=== PATIENT | female | born 1975 | race African-American/Black ===

== ENCOUNTER 2022-04-12 11:53 | Emergency (ER) | payer SELFPAY ==
[~2022-04-12] VITALS: Ht 165.1 cm; Wt 66.0 kg
[2022-04-12] MEDS ORDERED: KETOROLAC 60MG/2ML VIAL IM ONE (13:00)
[2022-04-12 13:12] VITALS: BP 164/105
[2022-04-12] MEDS ORDERED: IBUP-2029 MT (14:27)
== END 2022-04-12 14:35 | disposition home or self-care (01) ==
LOC: ER 11:53
DX: M25.512 Pain in left shoulder (principal); I10 Essential (primary) hypertension; V49.9XXA Car occupant (driver) (passenger) injured in unspecified traffic accident, initial encounter; Y93.89 Activity, other specified; Y92.89 Other specified places as the place of occurrence of the external cause; Y99.8 Other external cause status
CPT/HCPCS: 71045; 73030; 93005; 96372; 99284; J1885